=== PATIENT | male | born 1965 | race Hispanic/Latino ===

== ENCOUNTER 2025-10-31 17:14 | Emergency (ER) | payer SELFPAY ==
[2025-10-31 18:12] LABS: Glucose, Urine (Dipstick) >=1000 mg/dL (Negative); Leukocyte 500 (Negative); Protein, Urine (Dipstick) 30 mg/dl (Neg-Trace); Specific Gravity, Urine 1.010 (1.005-1.030)
[2025-10-31 18:30] LABS: #Basophils 0.03 10x3/uL (0.0-0.2); #Eosinophils Less than 0.03 10x3/uL (0.0-0.5); #Monocytes 1.06 10x3/uL (0.0-1.1); #Neutrophils 13.23 10x3/uL (1.5-8.4); %Basophils 0.2 % (0.0-2.0); %Eosinophils 0.1 % (0.0-6.0); %Lymphocytes 11.0 % (18.0-47.0); %Monocytes 6.5 % (0.0-10.0); %Neutrophils 81.5 % (40.0-75.0); Hematocrit 36.6 % (38.8-50.0); Hemoglobin 13.2 g/dL (13.5-17.5); Mean Corpuscular Hemoglobin 32.3 pg (27.0-33.0); Mean Corpuscular Volume 89.5 fL (81.2-95.1); Platelet Count 162 10x3/uL (150-450); Red Blood Cell (RBC) Count 4.09 10x6/uL (4.32-5.72); White Blood Cell (WBC) Count 16.25 10x3/uL (3.5-10.5)
[2025-10-31] MEDS ORDERED: cefTRIAXone (ROCEPHIN) 1 GM VIAL ONE (18:41)
[2025-10-31 18:50] LABS: ALT (SGPT) Less than 4 U/L (Less than 45); AST (SGOT) 17 U/L (11-34); Albumin 3.5 g/dL (3.1-4.5); Alkaline Phosphatase 94 U/L (40-110); Anion Gap 12 mmol/L (10-20); BUN (Urea Nitrogen) 22 mg/dL (8.4-25.7); Bilirubin, Total 0.8 mg/dL (0.3-1.2); Calc. Creatinine Clearance 0 mL/min (70-130); Calcium 9.3 mg/dL (7.8-10.44); Carbon Dioxide 24 mmol/L (23-31); Chloride 103 mmol/L (98-107); Globulin 3.9 g/dL (2.4-3.5); Glucose 285 mg/dL (80-115); Lipase 34 U/L (8-78); Potassium 3.8 mmol/L (3.5-5.1); Sodium 135 mmol/L (136-145)
[2025-10-31 18:50] LABS: Bacteria/HPF 2+ HPF (None Seen); CAUTI Indications for Culture Pelvic or flank pain
[2025-10-31 18:51] LABS: Mucous/LPF 1+ LPF (<2+)
[2025-10-31 18:53] LABS: Sperm/HPF 1+ HPF (None Seen)
[2025-10-31 18:55] LABS: Urine Culture Reflex Yes Yes
== END 2025-10-31 19:01 | disposition home or self-care (01) ==
LOC: CSHERS 17:14
DX: N45.2 Orchitis (principal)
CPT/HCPCS: 36415; 76870; 80053; 81001; 83690; 85025; 87086; 93976; 96365; 96375; J0696; J2270